=== PATIENT | male | born 1980 | race Caucasian/White ===

== ENCOUNTER 2018-06-23 13:59 | Emergency (ER) | payer BC ==
[~2018-06-23] VITALS: Ht 190.5 cm; Wt 101.2 kg
[2018-06-23 14:11] VITALS: BP 130/85
--- NOTE | 2018-06-23 14:15 | NUR ---
38y/m bib family member c/o bleeding. pt states " he was seen at out [facility] today for I & D of abscess to rt anterior chest wall; actively bleeding mild. some coagulapthy seen; pt pale in color. skin w/d/i. resp even and unlabored, on ra@98%. pt is aaox4, pt denies n/v. pt vss at this time; bedrail up x 1, bed at lowest position, aware and notified of pt status. med hx: none Rx: none
--- NOTE | 2018-06-23 15:02 | NUR ---
Patient being evaluated by physician at bedside.
[2018-06-23 15:33] VITALS: BP 128/83
--- NOTE | 2018-06-23 15:33 | NUR ---
Patient discharged with v/s stable. Written and verbal after care instructions given and explained. Patient verbalized understanding. Ambulatory with steady gait. All questions addressed prior to discharge. Advised to follow up with PMD.
== END 2018-06-23 15:33 | disposition home or self-care (01) ==
LOC: MED 13:59
DX: Z48.01 Encounter for change or removal of surgical wound dressing (principal); F12.10 Cannabis abuse, uncomplicated
CPT/HCPCS: 99283